=== PATIENT | female | born 1960 | race American Indian/Alaskan Native ===

== ENCOUNTER 2017-07-25 15:21 | Outpatient (CLI) | payer BC ==
--- NOTE | 2017-07-26 16:22 | Mammography Report ---
BILATERAL DIGITAL SCREENING MAMMOGRAM with CAD: 07/25/17 15:21:00 CLINICAL: Routine screening. COMPARISON:04/26/16 FINDINGS: The breasts are almost entirely fatty. No mass, architectural distortion or suspicious calcifications. IMPRESSION: No mammographic evidence of malignancy. BI-RADS CATEGORY: 1 - - Negative RECOMMENDATION: Routine mammographic screening in one year. COMMENT: Patient follow-up letters are generated by our [employer] application.
== END 2017-07-25 15:22 | disposition home or self-care (01) ==
LOC: SPVWC 15:21
PROVIDERS: ATTEND Family Medicine
DX: Z12.31 Encounter for screening mammogram for malignant neoplasm of breast (principal)
CPT/HCPCS: 77067

== ENCOUNTER 2017-08-03 06:15 | Day surgery (SDC) | payer BC ==
[2017-08-03] MEDS ORDERED: WATER FOR IRRIG STERILE ONE (07:08)
[2017-08-03] MEDS ORDERED: WATER FOR IRRIG STERILE IR ONE (07:08)
--- NOTE | 2017-08-03 07:31 | Anesthesia Day of Surgery ---
Anesthesia Day of Surgery - Day of Surgery Patient Examined: Yes Patient H&P Reviewed: Yes Patient is NPO: Yes
--- NOTE | 2017-08-03 07:31 | Anesthesia Consultation ---
Anesthesia Consult and Med Hx Date of service: 08/03/17 - Airway Anesthetic Teeth Evaluation: Good ROM Head & Neck: Adequate Mental/Hyoid Distance: Adequate Mallampati Class: Class II Intubation Access Assessment: Good - Pulmonary Exam CTA: Yes - Cardiac Exam Cardiac Exam: RRR - Pre-Operative Health Status ASA Pre-Surgery Classification: ASA2 Proposed Anesthetic Plan: MAC
[2017-08-03] MEDS ORDERED: DIPRIVAN 10 MG/ML IV ONE ×2 (07:53)
[2017-08-03] MEDS ORDERED: XYLOCAINE MPF 2% ONE (08:00)
[2017-08-03] MEDS ORDERED: NACL 0.9% 1000 ML 1,000 ML IV SCH (08:00)
--- NOTE | 2017-08-03 08:36 | History and Physical Report ---
HISTORY OF PRESENT ILLNESS: A 57-year-old -[place] female in reasonably good health. Last colonoscopy was more than 10 years ago. She is here for a colonoscopy as part of colon polyp screening. She has a history of allergy to LATEX. No prior history of stroke or CVAs or any coronary artery disease. PHYSICAL EXAMINATION: VITALS SIGNS: otherwise are stable. HEENT: Shows no JVD. LUNGS: Clear to auscultation. CARDIOVASCULAR: Normal. ABDOMEN: Soft. Bowel sounds present. NEUROLOGIC: The patient is alert and oriented. ASSESSMENT: Colon polyp screening. Colonoscopy to be done at [facility] on 08/03/2017. JOB# [id number] KHAI/IRENA
--- NOTE | 2017-08-03 08:48 | Procedure Note ---
Date of procedure: 08/03/17 Pre-op diagnosis: Colon Polyp Screening Post-op diagnosis: other (Hyperplastic,small,Recto-Sigmoid Polyps/Diverticular disease/Non-specific Proctitis/Mild to Moderate Internal Hemorrhoids) Procedure: Colonoscopy with biopsy done with MAC Anesthesia done. Colonoscopy showed small, possibly hyperplastic Polyps in the recto-sigmoid area,Diverticular Disease,non- specific Proctitis and Mild to Moderate Internal Hemorrhoid. Anesthesia: MAC Surgeon: POLINA JOSE Estimated blood loss: minimal Pathology: list Condition: stable Disposition: same day (Patient is encouraged to take fiber supplements and follow up in 1 to 2 weeks.)
--- NOTE | 2017-08-03 09:11 | Operative Report ---
PROCEDURE: Colonoscopy. INDICATIONS: This is a 57-year-old female who had a colonoscopy done as part of colon polyp screening. DESCRIPTION OF PROCEDURE: Procedure was done after getting informed consent with MAC anesthesia. Initial rectal exam was unremarkable. Instrument was passed through the rectum onto the cecum, which was identified with ileocecal valve and the appendiceal orifice. Visualization was fair to good. There was a few minor diverticula noted in the proximal colon. The transverse colon showed normal mucosa. Xhbx-ah-dehwdkts diverticular disease was noted in the left colon. There were 2 small possibly hyperplastic polyps noted in the rectosigmoid area, probably about 6-7 mm in diameter, removed by cold biopsy. The rectum showed some mild proctitis, possibly nonspecific secondary to the fair prep and udow-ip-jysgmusa internal hemorrhoid. There was minimal bleeding from the biopsy site. No complications associated with the procedure. ASSESSMENT: Colon polyp screening. Two small rectosigmoid polyps, possibly hyperplastic arye-ep-hfqobdvv left colon and scattered diverticular disease. Nonspecific proctitis, possibly secondary to the prep and iclm-av-rvosjalq internal hemorrhoids. The patient will be encouraged to take fiber supplements and to avoid aspirin and aspirin-related products for the next few days and follow up in the office in 1-2 weeks. [facility]# [id number] KHAI/IRENA
[2017-08-03 09:29] VITALS: BP 146/80
== END 2017-08-03 06:16 | disposition home or self-care (01) ==
LOC: GIO 06:15
DX: Z12.11 Encounter for screening for malignant neoplasm of colon (principal); K57.30 Diverticulosis of large intestine without perforation or abscess without bleeding; K62.89 Other specified diseases of anus and rectum; K64.8 Other hemorrhoids; Z91.040 Latex allergy status
CPT/HCPCS: 45380; 88305; J2704; J7030

== ENCOUNTER 2018-07-14 10:04 | Emergency (ER) | payer BC ==
[2018-07-14 10:08] VITALS: BP 135/89
--- NOTE | 2018-07-14 10:42 | Emergency Department Report ---
Minor Respiratory - HPI Chief Complaint: Sore Throat Stated Complaint: POSS STREP THROAT Time Seen by Provider: 07/14/18 10:38 Duration: 2 Days Pain Location: Throat Severity: moderate Minor Respiratory: Yes Sore Throat, Yes Able to Tolerate Fluids, Yes Ear Pain, No Rhinorrhea, No Cough, No Sick Contacts, No Hemoptysis, No Chest Pain, No Shortness of Breath, No Fever Other History: sore throat x 2 days. no other sx ED Review of Systems ROS: Stated complaint: POSS STREP THROAT Other details as noted in HPI Comment: All other systems reviewed and negative ENT: as per HPI, throat pain ED Past Medical Hx - Past Medical History Previous Medical History?: No - Surgical History Past Surgical History?: Yes Additional Surgical History: x 1 - Social History Smoking Status: Never Smoker Substance Use Type: None - Medications Home Medications: Home Medications Medication Instructions Recorded Confirmed Last Taken Type busPIRone 10 mg PO PRN PRN 08/03/17 08/03/17 06/20/17 History Minor Respiratory Exam - Exam General: Vital signs noted. No distress. Alert and acting appropriately. HEENT: Yes Pharyngeal Erythema, Yes Moist Mucous Membranes, No Pharyngeal Exudates, No Rhinorrhea, No Conjuctival Injection, No Frontal Tenderness, No Maxillary Tenderness Ear: Neither TM Bulge, Neither TM Erythema, Neither EAC Pain, Neither EAC Discharge Neck: Yes Supple, No Adenopathy Lungs: Yes Good Air Exchange, No Wheezes, No Cough Heart: Yes Regular, No Murmur Abdomen: No Tenderness, No Peritoneal Signs Skin: No Rash, No Edema Neurologic: Alert and oriented, no deficits. Musculoskeletal: Unremarkable. ED Course Vital Signs 07/14/18 10:06 Temperature 97.5 F L Pulse Rate 93 H Respiratory 16 Rate Blood Pressure 135/89 O2 Sat by Pulse 97 Oximetry ED Medical Decision Making - Medical Decision Making sore throat only erythema on exam strep negative no abx, fu pcp - Differential Diagnosis strep, viral Critical care attestation.: If time is entered above; I have spent that time in minutes in the direct care of this critically ill patient, excluding procedure time. ED Disposition Clinical Impression: Viral pharyngitis Disposition: DC-01 TO HOME OR SELFCARE Is pt being admited?: No Condition: Good Instructions: Pharyngitis (ED) Referrals: PAGE GERARD MD [Primary Care Provider] - 3-5 Days Time of Disposition: 11:15
== END 2018-07-14 11:21 | disposition home or self-care (01) ==
LOC: ED 10:04
DX: J02.9 Acute pharyngitis, unspecified (principal); Z91.040 Latex allergy status
CPT/HCPCS: 87116; 87430; 99283

== ENCOUNTER 2018-07-16 11:11 | Outpatient (CLI) | payer BC ==
[2018-07-16 11:56] LABS: Basophils % (Auto) 0.8 % (0.0-1.8); Eosinophils % (Auto) 0.1 % (0.0-4.3); Hematocrit 42.6 % (30.3-42.9); Hemoglobin 13.9 gm/dl (10.1-14.3); Lymphocytes # (Auto) 1.4 K/mm3 (1.2-5.4); Lymphocytes % (Auto) 27.2 % (13.4-35.0); Mean Corpuscular HGB Conc 33 % (30-34); Mean Corpuscular Volume 88 fl (79-97); Monocytes # (Auto) 0.7 K/mm3 (0.0-0.8); Monocytes % (Auto) 12.5 % (0.0-7.3); Platelet Count 207 K/mm3 (140-440); Red Blood Count 4.84 M/mm3 (3.65-5.03); Red Cell Distribution Width 15.5 % (13.2-15.2)
[2018-07-16 11:59] LABS: Bilirubin,Urine NEG (Negative); Blood,Urine NEG (Negative); Color,Urine Yellow (Yellow); Mucus,Urine 2+ /HPF; Urobilinogen,Urine < 2.0 mg/dL (<2.0)
[2018-07-16 12:11] LABS: Alanine Aminotransferase 15 units/L (7-56); Albumin 4.2 g/dL (3.9-5); BUN/Creatinine Ratio 15; Blood Urea Nitrogen 9 mg/dL (7-17); Chol/HDL Ratio 2.92 %; HDL Cholesterol 65 mg/dL (40-59); Hemolysis Index 1; LDL Cholesterol,Direct 116 mg/dL (50-130)
--- NOTE | 2018-07-16 12:22 | XRay Report ---
ROUTINE CHEST, TWO VIEWS: HISTORY: Cough. The trachea, heart, mediastinal contour, lung valero and bony thorax are unremarkable. IMPRESSION: Unremarkable chest x-ray.
== END 2018-07-16 11:12 | disposition home or self-care (01) ==
LOC: XRAY 11:11
PROVIDERS: ATTEND Nurse Practitioner Gerontology
DX: R05 Cough (principal)
CPT/HCPCS: 36415; 71046; 80053; 80061; 81001; 83036; 85025

== ENCOUNTER 2018-07-22 11:29 | Outpatient (CLI) | payer BC ==
--- NOTE | 2018-07-23 18:09 | Pulmonary Function Test ---
REFERRING PHYSICIAN: Dr. Radha Hancock. Spirometry revealed FVC, FEV1 and FEV1/FVC ratio is normal. Flow volume loop is normal. MVV is normal. IMPRESSION: Normal spirometry. JOB# [id number] CT/NTS
== END 2018-07-22 11:30 | disposition home or self-care (01) ==
LOC: PF 11:29
PROVIDERS: ATTEND Family Medicine
DX: R05 Cough (principal)
CPT/HCPCS: 94010

== ENCOUNTER 2018-07-29 11:25 | Outpatient (CLI) | payer BC ==
--- NOTE | 2018-07-29 13:07 | Mammography Report ---
BILATERAL DIGITAL SCREENING MAMMOGRAM with CAD: 07/29/18 11:25:00 CLINICAL: Routine screening. COMPARISON:07/25/17 FINDINGS: The breasts are almost entirely fatty. No mass, architectural distortion or suspicious calcifications. IMPRESSION: No mammographic evidence of malignancy. BI-RADS CATEGORY: 1 - - Negative RECOMMENDATION: Routine mammographic screening in one year. COMMENT: Patient follow-up letters are generated by our [employer] application.
== END 2018-07-29 11:26 | disposition home or self-care (01) ==
LOC: MAMMO 11:25
PROVIDERS: ATTEND Family Medicine
DX: Z12.31 Encounter for screening mammogram for malignant neoplasm of breast (principal)
CPT/HCPCS: 77067

== ENCOUNTER 2018-12-13 07:04 | Outpatient (CLI) | payer BC ==
[2018-12-13 07:58] LABS: Alanine Aminotransferase 15 units/L (7-56); Albumin 4.3 g/dL (3.9-5); BUN/Creatinine Ratio 15; Blood Urea Nitrogen 9 mg/dL (7-17); Calcium 9.3 mg/dL (8.4-10.2); Chol/HDL Ratio 2.85 %; HDL Cholesterol 71 mg/dL (40-59); Hemolysis Index 1; LDL Cholesterol,Direct 127 mg/dL (50-130)
--- NOTE | 2018-12-13 14:43 | Treadmill Report ---
ORDERING PHYSICIAN: Dr. Radha Hancock. FINDINGS: There is no scintigraphic evidence of myocardial ischemia. There is a mild decrease in uptake noted in the anterior wall, both on stress and rest imaging, likely due to overlying breast attenuation artifact. Gated imaging is pertinent for normal left ventricular size and systolic function with an ejection fraction measured at 71%. Normal wall motion and wall thickening on gated imaging. CONCLUSION: Normal perfusion scan. JOB# [id number] BRANDEE/IRENA
== END 2018-12-13 07:05 | disposition home or self-care (01) ==
LOC: ECHO 07:04
PROVIDERS: ATTEND Family Medicine
DX: Z00.01 Encounter for general adult medical examination with abnormal findings (principal); I34.0 Nonrheumatic mitral (valve) insufficiency; I51.7 Cardiomegaly
CPT/HCPCS: 36415; 78452; 80053; 80061; 83036; 86900; 86901; 93017; 93306; A9502

== ENCOUNTER 2019-04-04 08:19 | Outpatient (CLI) | payer BC ==
[2019-04-04 09:55] LABS: Alanine Aminotransferase 13 units/L (7-56); Albumin 4.1 g/dL (3.9-5); BUN/Creatinine Ratio 23; Blood Urea Nitrogen 14 mg/dL (7-17); Calcium 9.1 mg/dL (8.4-10.2); Hemolysis Index 0
== END 2019-04-04 08:20 | disposition home or self-care (01) ==
LOC: LAB 08:19
PROVIDERS: ATTEND Nurse Practitioner Gerontology
DX: R10.30 Lower abdominal pain, unspecified (principal); I10 Essential (primary) hypertension; Z91.040 Latex allergy status
CPT/HCPCS: 36415; 80053; 87086

== ENCOUNTER 2019-04-08 12:50 | Outpatient (CLI) | payer BC ==
--- NOTE | 2019-04-08 16:34 | Ultrasound Report ---
ULTRASOUND PELVIS INDICATION: R10.30 LOWER ABDOMINAL PAIN/N83.292 OTHER OVARIAN CYST LEFT SIDE. TECHNIQUE: Transabdominal and Transvaginal. Duplex Color Doppler used: Yes. COMPARISON: None available FINDINGS: Uterus: Present. Size: 7.2 x 1.9 x 3.3 cm. Endometrial complex: Normal measuring 0.3 cm. Mass lesions: None. Additional findings: None. Right Ovary: Size: 1.2 x 0.8 x 1.4 cm Blood flow: Normal. Cyst or mass: None. Left Ovary: Size: 0.0 x 1.0 x 3.0 cm Blood flow: Normal. Cyst or mass: None. Urinary Bladder: Normal. Free Fluid: None. Additional Findings: None. IMPRESSION: 1. No acute sonographic abnormality of the pelvis. Signer Name: Ross Cordova MD Signed: 04/08/2019 4:30 PM Workstation Name: [id number]
== END 2019-04-08 12:51 | disposition home or self-care (01) ==
LOC: US 12:50
PROVIDERS: ATTEND Nurse Practitioner Gerontology
DX: N83.292 Other ovarian cyst, left side (principal)
CPT/HCPCS: 76830; 76856

== ENCOUNTER 2019-05-12 12:53 | Emergency (ER) | payer BC ==
--- NOTE | 2019-05-12 14:26 | Emergency Department Report ---
ED General Adult HPI - General Chief complaint: Skin Rash Stated complaint: EXZEMA FLARE UP Time Seen by Provider: 05/12/19 14:20 Source: patient Mode of arrival: Ambulatory Limitations: No Limitations - History of Present Illness Initial comments: 58 yo AA F pt with hx of eczema complains of eczema flair on chest, abdomen, and arms x 4 days. States rash is itchy and looks like her normal eczema flair. Denies pain fever or insect bites. States benadryl cream not working -: Sudden Associated Symptoms: denies other symptoms - Related Data Home Medications Medication Instructions Recorded Confirmed Last Taken busPIRone 10 mg PO PRN PRN 08/03/17 08/03/17 06/20/17 Previous Rx's Medication Instructions Recorded Last Taken Type Prednisone [predniSONE 5 mg (6-Day 5 mg PO .TAPER 6 Days #1 tab.ds.pk 05/12/19 Unknown Rx Pack, 21 Tabs)] Triamcinolone Acetonide 80 gm TP TID PRN #1 oint...g. 05/12/19 Unknown Rx Allergies Allergy/AdvReac Type Severity Reaction Status Date / Time latex Allergy Rash Verified 08/03/17 07:08 ED Review of Systems ROS: Stated complaint: EXZEMA FLARE UP Other details as noted in HPI Comment: All other systems reviewed and negative Skin: as per HPI ED Past Medical Hx - Past Medical History Previous Medical History?: No - Surgical History Past Surgical History?: Yes Additional Surgical History: x 1 - Social History Smoking Status: Never Smoker Substance Use Type: None - Medications Home Medications: Home Medications Medication Instructions Recorded Confirmed Last Taken Type busPIRone 10 mg PO PRN PRN 08/03/17 08/03/17 06/20/17 History Prednisone [predniSONE 5 mg (6-Day 5 mg PO .TAPER 6 Days #1 tab.ds.pk 05/12/19 Unknown Rx Pack, 21 Tabs)] Triamcinolone Acetonide 80 gm TP TID PRN #1 oint...g. 05/12/19 Unknown Rx ED Physical Exam - General Limitations: No Limitations General appearance: alert, in no apparent distress - Head Head exam: Present: atraumatic, normocephalic - Eye Eye exam: Present: normal appearance - ENT ENT exam: Present: mucous membranes moist - Neck Neck exam: Present: normal inspection - Respiratory Respiratory exam: Absent: respiratory distress - Cardiovascular Cardiovascular Exam: Present: regular rate, normal rhythm. Absent: systolic murmur, diastolic murmur, rubs, gallop - Back Exam Back exam: Present: normal inspection - Neurological Exam Neurological exam: Present: alert, oriented X3 - Psychiatric Psychiatric exam: Present: normal affect, normal mood - Skin Skin exam: Present: warm, dry, intact, normal color, rash (diffuse eczematous rash noted on torso and arms. No tenderness to palpation ) ED Medical Decision Making - Medical Decision Making Pt here for eczema flair. Denies pain. Rash is consitent with eczema on exam. Vitals are normal. Pt is stable for d/c home with [facility] follow up in 3-5 days. Strict return precautions were discussed in detail with pt who states understanding. Critical care attestation.: If time is entered above; I have spent that time in minutes in the direct care of this critically ill patient, excluding procedure time. ED Disposition Clinical Impression: Eczema Qualifiers: Eczema type: other Qualified Code(s): L30.8 - Other specified dermatitis Disposition: DC- TO HOME OR SELFCARE Is pt being admited?: No Condition: Stable Instructions: Eczema (ED) Prescriptions: Prednisone [predniSONE 5 mg (6-Day Pack, 21 Tabs)] 5 mg PO .TAPER 6 Days #1 tab.ds.pk Triamcinolone Acetonide 80 gm TP TID PRN #1 oint...g. PRN Reason: Itching Referrals: PRIMARY CARE, [Primary Care Provider] - 3-5 Days
[2019-05-12 14:28] VITALS: BP 134/65
== END 2019-05-12 14:35 | disposition home or self-care (01) ==
LOC: ED 12:53
DX: L30.8 Other specified dermatitis (principal); Z98.890 Other specified postprocedural states; Z91.040 Latex allergy status
CPT/HCPCS: 99282

== ENCOUNTER 2019-05-13 06:54 | Outpatient (CLI) | payer BC ==
[2019-05-13 13:40] LABS: BUN/Creatinine Ratio 28; Blood Urea Nitrogen 14 mg/dL (7-17); Hemolysis Index 4
== END 2019-05-13 06:55 | disposition home or self-care (01) ==
LOC: LAB 06:54
PROVIDERS: ATTEND Internal Medicine Cardiovascular Disease
DX: I10 Essential (primary) hypertension (principal)
CPT/HCPCS: 36415; 80048

== ENCOUNTER 2019-06-27 10:22 | Outpatient (CLI) | payer BC | END 2019-06-27 10:23 | disposition home or self-care (01) | LOC: LAB 10:22 | PROVIDERS: ATTEND Chiropractor | DX: J00 Acute nasopharyngitis [common cold] (principal) | CPT/HCPCS: 87116 ==

== ENCOUNTER 2020-02-19 07:59 | Outpatient (CLI) | payer BC ==
[2020-02-19 10:20] LABS: Hematocrit 36.8 % (30.3-42.9); Hemoglobin 12.3 gm/dl (10.1-14.3); Mean Corpuscular HGB Conc 33 % (30-34); Mean Corpuscular Volume 83 fl (79-97); Platelet Count 269 K/mm3 (140-440); Red Blood Count 4.44 M/mm3 (3.65-5.03); Red Cell Distribution Width 15.2 % (13.2-15.2)
[2020-02-19 10:31] LABS: Bilirubin,Urine NEG (Negative); Blood,Urine NEG (Negative); Color,Urine Straw (Yellow); Protein,Urine <15 mg/dL mg/dL (Negative); Urobilinogen,Urine < 2.0 mg/dL (<2.0)
[2020-02-19 10:59] LABS: Alanine Aminotransferase 16 units/L (7-56); Albumin 3.9 g/dL (3.9-5); Blood Urea Nitrogen 9 mg/dL (7-17); Calcium 9.6 mg/dL (8.4-10.2); Chol/HDL Ratio 2.34 %; HDL Cholesterol 78 mg/dL (40-59); Hemolysis Index 11; LDL Cholesterol,Direct 110 mg/dL (50-130)
[2020-02-19 11:06] LABS: BUN/Creatinine Ratio 18
--- NOTE | 2020-02-19 16:30 | XRay Report ---
XR chest routine 2V INDICATION / CLINICAL INFORMATION: WELLNESS EXAM COMPARISON: July 16 2018 FINDINGS: SUPPORT DEVICES: None. HEART / MEDIASTINUM: No significant abnormality. LUNGS / PLEURA: Lungs are clear. Costophrenic sulci are sharp. No pneumothorax. ADDITIONAL FINDINGS: No significant additional findings. IMPRESSION: 1. No acute findings. Signer Name: Angel Frye MD Signed: 02/19/2020 4:25 PM Workstation Name: [id number]
== END 2020-02-19 08:00 | disposition home or self-care (01) ==
LOC: LAB 07:59
PROVIDERS: ATTEND Nurse Practitioner Gerontology
DX: R94.31 Abnormal electrocardiogram [ECG] [EKG] (principal); I10 Essential (primary) hypertension; E78.5 Hyperlipidemia, unspecified; R73.03 Prediabetes; Z87.891 Personal history of nicotine dependence
CPT/HCPCS: 36415; 71046; 80053; 80061; 81001; 83036; 84443; 85027; 87086

== ENCOUNTER 2020-03-01 09:41 | Outpatient (CLI) | payer BC ==
--- NOTE | 2020-03-01 12:11 | Mammography Report ---
DIGITAL SCREENING MAMMOGRAM WITH CAD, 03/01/2020 INDICATION: Routine screening mammography. TECHNIQUE: Digital bilateral 2D mammography was obtained in the craniocaudal and mediolateral obliq ue projections. This examination was interpreted with the benefit of Computer-Aided Detection analysi s. COMPARISON: 07/25/2017, 07/29/2018 FINDINGS: Breast Density: The breasts are almost entirely fatty. There is no evidence of dominant mass, suspicious calcifications or architectural distortion in eithe r breast. No interval change. IMPRESSION: No evidence of malignancy. Follow up recommendation: Routine yearly BI-RADS Category 1: Negative. A "normal" or negative report should not discourage follow up or biopsy of a clinically significant f inding. A written summary of these findings will be mailed to the patient. The patient will be entered into a mammography reporting system which will generate a reminder letter for the patient's next appointmen t at the appropriate interval. The [employer] recommends yearly mammograms starting at age 40 and continuing as l oni as a woman is in good health. Breast MRI is recommended for women with an approximate 20-25% or greater lifetime risk of breast cancer, including women with a strong family history of breast or ova tao cancer or who have been treated for Hodgkin's disease. Signer Name: Eugenia Mares MD Signed: 03/01/2020 12:06 PM Workstation Name: [id number]
== END 2020-03-01 09:42 | disposition home or self-care (01) ==
LOC: MAMMO 09:41
PROVIDERS: ATTEND Family Medicine
DX: Z12.31 Encounter for screening mammogram for malignant neoplasm of breast (principal); I10 Essential (primary) hypertension; R94.31 Abnormal electrocardiogram [ECG] [EKG]; N64.89 Other specified disorders of breast; Z87.891 Personal history of nicotine dependence
CPT/HCPCS: 77067; 93005

== ENCOUNTER 2020-03-12 12:44 | Outpatient (CLI) | payer BC ==
--- NOTE | 2020-03-12 14:30 | XRay Report ---
RIGHT FOREARM 2 VIEWS INDICATION / CLINICAL INFORMATION: Right forearm pain. COMPARISON: None available. FINDINGS: BONES / JOINT(S): There is mild spurring involving the coronoid process of the proximal ulna. There i s no evidence of fracture, subluxation or destructive lesion. SOFT TISSUES: No significant abnormality. ADDITIONAL FINDINGS: None. Signer Name: Gurvinder Corey MD Signed: 03/12/2020 2:26 PM Workstation Name: [id number]
--- NOTE | 2020-03-12 15:42 | XRay Report ---
RIGHT HAND 3 VIEW(S) INDICATION / CLINICAL INFORMATION: JOINT PAIN IN HAND COMPARISON: None available. FINDINGS: BONES / JOINT(S): No acute fracture or subluxation. No significant arthritis. Carpal arcs are intact. SOFT TISSUES: No significant abnormality. ADDITIONAL FINDINGS: None. Signer Name: Forrest Clarke MD Signed: 03/12/2020 3:38 PM Workstation Name: [id number]
== END 2020-03-12 12:45 | disposition home or self-care (01) ==
LOC: XRAY 12:44
PROVIDERS: ATTEND Internal Medicine
DX: M77.8 Other enthesopathies, not elsewhere classified (principal); M25.541 Pain in joints of right hand

== ENCOUNTER 2020-04-12 12:16 | Outpatient (CLI) | payer BC | END 2020-04-12 12:17 | disposition home or self-care (01) | LOC: PF 12:16 | PROVIDERS: ATTEND Nurse Practitioner Gerontology | DX: I10 Essential (primary) hypertension (principal); R94.31 Abnormal electrocardiogram [ECG] [EKG]; Z87.891 Personal history of nicotine dependence | CPT/HCPCS: 94010 ==

== ENCOUNTER 2020-06-04 12:48 | Outpatient (CLI) | payer BC ==
[2020-06-04 13:38] LABS: Microalbumin/Creatinine Ratio 82.8 ug/mg
[2020-06-04 14:05] LABS: Alanine Aminotransferase 15 units/L (7-56); Albumin 4.3 g/dL (3.9-5); Blood Urea Nitrogen 6 mg/dL (7-17); HDL Cholesterol 74 mg/dL (40-59); Hemolysis Index 2; LDL Cholesterol,Direct 118 mg/dL (50-130)
[2020-06-04 14:06] LABS: BUN/Creatinine Ratio 10
== END 2020-06-04 12:49 | disposition home or self-care (01) ==
LOC: LAB 12:48
PROVIDERS: ATTEND Family Medicine
DX: I10 Essential (primary) hypertension (principal); E78.5 Hyperlipidemia, unspecified; E11.9 Type 2 diabetes mellitus without complications
CPT/HCPCS: 36415; 80053; 80061; 82043; 83036; 84443

== ENCOUNTER 2020-09-22 09:42 | Outpatient (CLI) | payer BC ==
[2020-09-22 10:34] LABS: Alanine Aminotransferase 14 units/L (7-56); Albumin 4.1 g/dL (3.9-5); Blood Urea Nitrogen 12 mg/dL (7-17); Calcium 8.8 mg/dL (8.4-10.2); Chol/HDL Ratio 2.54 %; HDL Cholesterol 77 mg/dL (40-59); Hemolysis Index 9; LDL Cholesterol,Direct 120 mg/dL (50-130)
[2020-09-22 10:58] LABS: BUN/Creatinine Ratio 24
[2020-09-22 12:42] LABS: Creatinine,Urine 48.4 mg/dL (0.1-20.0)
[2020-09-22 12:44] LABS: Microalbumin/Creatinine Ratio 24.7 ug/mg
== END 2020-09-22 09:43 | disposition home or self-care (01) ==
LOC: LAB 09:42
PROVIDERS: ATTEND Nurse Practitioner Gerontology
DX: E11.9 Type 2 diabetes mellitus without complications (principal); E78.5 Hyperlipidemia, unspecified
CPT/HCPCS: 36415; 80053; 80061; 82043; 83036

== ENCOUNTER 2021-01-04 09:25 | Outpatient (CLI) | payer BC ==
[2021-01-04 10:15] LABS: Hematocrit 39.4 % (30.3-42.9); Hemoglobin 12.8 gm/dl (10.1-14.3); Mean Corpuscular HGB Conc 33 % (30-34); Mean Corpuscular Volume 83 fl (79-97); Platelet Count 272 K/mm3 (140-440); Red Blood Count 4.75 M/mm3 (3.65-5.03); Red Cell Distribution Width 16.7 % (13.2-15.2)
[2021-01-04 10:36] LABS: Alanine Aminotransferase 13 units/L (7-56); Albumin 4.1 g/dL (3.9-5); Blood Urea Nitrogen 12 mg/dL (7-17); Calcium 9.7 mg/dL (8.4-10.2); Chol/HDL Ratio 2.33 %; HDL Cholesterol 81 mg/dL (40-59); Hemolysis Index 3; LDL Cholesterol,Direct 111 mg/dL (50-130)
[2021-01-04 10:37] LABS: Creatinine,Urine 101.7 mg/dL (0.1-20.0)
[2021-01-04 10:42] LABS: BUN/Creatinine Ratio 24; Microalbumin/Creatinine Ratio 11.7 ug/mg
== END 2021-01-04 09:26 | disposition home or self-care (01) ==
LOC: LAB 09:25
PROVIDERS: ATTEND Nurse Practitioner Gerontology
DX: E78.5 Hyperlipidemia, unspecified (principal); E11.9 Type 2 diabetes mellitus without complications; I10 Essential (primary) hypertension; R53.83 Other fatigue
CPT/HCPCS: 36415; 80053; 80061; 82043; 82607; 82652; 83036; 84443; 85027

== ENCOUNTER 2021-01-07 11:43 | Outpatient (CLI) | payer BC ==
--- NOTE | 2021-01-09 17:16 | Electrocardiograph Report ---
[facility] Test Date: 2021-01-07 Test Time: 13:23:25 Pat Name: BEATRIS MCKENZIE Department: Room: Gender: F Automation Specialist: GEORGETTE : 1960 Requested By: CÉSAR HERRERA Order Number: [id number] Reading MD: Bekah Leija Measurements Intervals [place] Rate: 63 P: 21 HI: 189 QRS: 12 QRSD: 101 T: 10 QT: 429 QTc: 441 Interpretive Statements Sinus arrhythmia No previous ECG available for comparison Electronically Signed On 01-09-2021 17:16:06 EDT by Bekah Leija
== END 2021-01-07 11:44 | disposition home or self-care (01) ==
LOC: CARD 11:43
PROVIDERS: ATTEND Nurse Practitioner Gerontology
DX: Z01.818 Encounter for other preprocedural examination (principal)
CPT/HCPCS: 93005

== ENCOUNTER 2021-02-04 09:32 | Outpatient (CLI) | payer BC ==
--- NOTE | 2021-02-04 10:42 | XRay Report ---
LEFT KNEE 2 VIEW(S) INDICATION / CLINICAL INFORMATION: PAIN IN LEFT LEG COMPARISON: None available. FINDINGS: BONES / JOINT(S): No acute fracture or subluxation. No significant arthritis. SOFT TISSUES: No significant abnormality. ADDITIONAL FINDINGS: None. Signer Name: Partha Espinoza DO Signed: 02/04/2021 10:37 AM Workstation Name: [id number]
== END 2021-02-04 09:33 | disposition home or self-care (01) ==
LOC: XRAY 09:32
PROVIDERS: ATTEND Internal Medicine
DX: M79.605 Pain in left leg (principal)

== ENCOUNTER 2021-02-11 08:26 | Outpatient (CLI) | payer BC ==
--- NOTE | 2021-02-11 15:51 | Magnetic Resonance Report ---
MRI LEFT KNEE WITHOUT CONTRAST INDICATION / CLINICAL INFORMATION: OSTEOARTHRITIS OF KNEE. TECHNIQUE: Multiplanar, multisequence MR images were obtained. No contrast used. COMPARISON: None available. FINDINGS: MEDIAL MENISCUS: There is full thickness radial tear at the medial meniscus posterior root with extru ivan of the body. LATERAL MENISCUS: No significant abnormality. ACL: No significant abnormality. PCL: No significant abnormality. MCL: No significant abnormality. LCL: No significant abnormality. DISTAL IT BAND: No significant abnormality. POSTEROLATERAL CORNER: No significant abnormality. DISTAL QUADRICEPS TENDON: No significant abnormality. PATELLAR TENDON: No significant abnormality. PATELLOFEMORAL ALIGNMENT: No significant abnormality. ARTICULAR CARTILAGE: There is mild chondrosis of the medial and lateral tibiofemoral compartments. JOINT SPACE: No significant joint effusion or synovitis. No significant popliteal cyst. There is mild joint space narrowing at the medial lateral tibiofemoral compartments. BONES: No significant bone marrow edema. No fracture. No osseous lesion. SOFT TISSUES: No significant abnormality. ADDITIONAL FINDINGS: None. IMPRESSION: 1. Mild osteoarthrosis changes of the medial and lateral tibiofemoral compartments. 2. Full-thickness radial tear at the medial meniscus posterior root with partial extrusion of the bod y. Signer Name: Bairon Murguia MD Signed: 02/11/2021 3:45 PM Workstation Name: [email or web address]
== END 2021-02-11 08:27 | disposition home or self-care (01) ==
LOC: MRI 08:26
PROVIDERS: ATTEND Orthopaedic Surgery
DX: S83.242A Other tear of medial meniscus, current injury, left knee, initial encounter (principal); M17.12 Unilateral primary osteoarthritis, left knee; X58.XXXA Exposure to other specified factors, initial encounter; Y93.89 Activity, other specified; Y92.89 Other specified places as the place of occurrence of the external cause; Y99.8 Other external cause status
CPT/HCPCS: 73721

== ENCOUNTER 2021-03-04 11:47 | Outpatient (CLI) | payer BC ==
--- NOTE | 2021-03-07 11:09 | Mammography Report ---
DIGITAL SCREENING MAMMOGRAM WITH CAD, 03/04/2021 CLINICAL INFORMATION / INDICATION: Routine screening mammography. SCREENING MAMMOGRAM TECHNIQUE: Digital bilateral 2D mammography was obtained in the craniocaudal and mediolateral obliqu e projections. This examination was interpreted with the benefit of Computer-Aided Detection analysis . COMPARISON: 03/01/2020 FINDINGS: Breast Density: There are scattered areas of fibroglandular density. No dominant mass, suspicious calcifications, or architectural distortion in either breast. IMPRESSION: No mammographic evidence of malignancy. Follow up recommendation: Routine yearly BI-RADS Category 1: Negative. A "normal" or negative report should not discourage follow up or biopsy of a clinically significant f inding. A written summary of these findings will be mailed to the patient. The patient will be entered into a mammography reporting system which will generate a reminder letter for the patient's next appointmen t at the appropriate interval. The [employer] recommends yearly mammograms starting at age 40 and continuing as l oni as a woman is in good health. Breast MRI is recommended for women with an approximate 20-25% or greater lifetime risk of breast cancer, including women with a strong family history of breast or ova tao cancer or who have been treated for Hodgkin's disease. Signer Name: Constantino Egan MD Signed: 03/07/2021 11:05 AM Workstation Name: [id number]
== END 2021-03-04 11:48 | disposition home or self-care (01) ==
LOC: MAMMO 11:47
PROVIDERS: ATTEND Family Medicine
DX: Z12.31 Encounter for screening mammogram for malignant neoplasm of breast (principal)
CPT/HCPCS: 77067

== ENCOUNTER 2021-10-31 09:26 | Outpatient (CLI) | payer BC ==
[2021-10-31 11:21] LABS: Alanine Aminotransferase 13 units/L (7-56); Albumin 4.5 g/dL (3.9-5); Blood Urea Nitrogen 16 mg/dL (7-17); Calcium 9.4 mg/dL (8.4-10.2); Chol/HDL Ratio 2.52 %; HDL Cholesterol 86 mg/dL (40-59); Hemolysis Index 2; LDL Cholesterol,Direct 123 mg/dL (50-130)
[2021-10-31 11:25] LABS: BUN/Creatinine Ratio 27
[2021-10-31 11:33] LABS: Free T4 (Free Thyroxine) 0.98 ng/dL (0.76-1.46)
[2021-10-31 12:20] LABS: Basophils % (Auto) 0.4 % (0.0-1.8); Eosinophils # (Auto) 0.2 K/mm3 (0.0-0.4); Eosinophils % (Auto) 2.9 % (0.0-4.3); Hemoglobin 12.1 gm/dl (10.1-14.3); Lymphocytes % (Auto) 39.4 % (13.4-35.0); Mean Corpuscular HGB Conc 32 % (30-34); Mean Corpuscular Volume 81 fl (79-97); Monocytes # (Auto) 0.4 K/mm3 (0.0-0.8); Monocytes % (Auto) 5.1 % (0.0-7.3); Platelet Count 285 K/mm3 (140-440); Red Blood Count 4.68 M/mm3 (3.65-5.03); Red Cell Distribution Width 16.4 % (13.2-15.2)
[2021-10-31 14:06] LABS: Creatinine,Urine 56.5 mg/dL (0.1-20.0)
[2021-10-31 14:13] LABS: Microalbumin/Creatinine Ratio 21.2 ug/mg
== END 2021-10-31 09:27 | disposition home or self-care (01) ==
LOC: LAB 09:26
PROVIDERS: ATTEND Family Medicine
DX: I10 Essential (primary) hypertension (principal); E11.9 Type 2 diabetes mellitus without complications; E78.5 Hyperlipidemia, unspecified
CPT/HCPCS: 36415; 80053; 80061; 82043; 83036; 84439; 84443; 85025